=== PATIENT | female | born 1950 | race Caucasian/White ===

== ENCOUNTER 2022-05-08 14:12 | Outpatient (CLI) | payer MEDICARE, SELFPAY ==
--- NOTE | 2022-05-08 14:40 | CRLHL7_ITS ---
For Patients: As a result of the Cures Act, medical imaging exams and procedure reports are released immediately into your electronic medical record. You may view this report before your referring provider. If you have questions, please contact your health care provider. BILATERAL SCREENING MAMMOGRAM WITH COMPUTER-AIDED DETECTION AND TOMOSYNTHESIS TECHNIQUE: CC and MLO views were obtained. These mammographic images have been obtained using full-field digital technique. These mammographic images were interpreted with the benefit of computer-aided detection. Breast Tomosynthesis was used in this interpretation. COMPARISON FILM: 04/21/21, 03/01/20, 01/10/19 FINDINGS: The breasts are heterogeneously dense, which may obscure small masses IMPRESSION: There is no radiographic evidence for malignancy. ASSESSMENT: BI-RADS Category 2: Benign RECOMMENDATION: Routine screening mammogram in 1 year. A lay language report of this examination will be provided to the patient. Mazin Murillo M.D. Diagnostic/Musculoskeletal Radiologist [email or web address] Transcribed: 10:52 p.m. PT/Dictated by: Mazin Murillo MD @ 05/11/2022 10:31:00 AM (Electronically Signed)
== END 2022-05-08 14:13 | disposition home or self-care (01) ==
LOC: MAMMO 14:13
PROVIDERS: PCP Internal Medicine; Visit Provider Internal Medicine
DX: Z12.31 Encounter for screening mammogram for malignant neoplasm of breast (principal); R92.2 Inconclusive mammogram
CPT/HCPCS: 77063; 77067

== ENCOUNTER 2022-10-12 08:03 | Outpatient (CLI) | payer MEDICARE, SELFPAY ==
[2022-10-12 08:49] LABS: Chloride* 107 mmol/L (96-114); Sodium* 137 mmol/L (135-149)
[2022-10-12 08:50] LABS: D Dimer Quantitative* 0.85 ug/ml (0.00-0.50); Potassium* 4.5 mmol/L (3.6-5.1)
[2022-10-12 08:52] LABS: Alanine Aminotransferase* 26 U/L (4-35); Alkaline Phosphatase* 66 U/L (40-150); Aspartate Amino Transferase* 27 U/L (12-35); Bilirubin Total* 0.8 mg/dL (0.1-1.5); Blood Urea Nitrogen* 15 mg/dL (7-30); Calcium* 9.3 mg/dL (8.4-10.6); Carbon Dioxide* 28 mmol/L (20-32); Cholesterol* 224 mg/dL (90-199); Creatinine* 0.7 mg/dL (0.5-1.5); Estimated Glomerular Filt Rate 92 ml/min; Glucose* 106 mg/dL (60-115); Total Protein* 6.7 g/dL (6.0-8.3); Triglycerides* 89 mg/dL (40-149)
[2022-10-12 08:53] LABS: HDL Cholesterol* 73 mg/dL (>=50); LDL Cholesterol Calculated 133 mg/dL (<100)
== END 2022-10-12 08:04 | disposition home or self-care (01) ==
LOC: NFLDREF 08:03
PROVIDERS: PCP Internal Medicine; Visit Provider Internal Medicine
DX: E78.5 Hyperlipidemia, unspecified (principal); Z13.9 Encounter for screening, unspecified
CPT/HCPCS: 80053; 80061; 85379

== ENCOUNTER 2022-10-26 13:04 | Outpatient (CLI) | payer MEDICARE, SELFPAY | END 2022-10-26 13:05 | disposition home or self-care (01) | LOC: NFLDREF 13:05 | PROVIDERS: PCP Internal Medicine; Visit Provider Internal Medicine | DX: E03.9 Hypothyroidism, unspecified (principal) | CPT/HCPCS: 84443 ==

== ENCOUNTER 2023-05-13 13:03 | Outpatient (CLI) | payer MEDICARE, SELFPAY ==
--- NOTE | 2023-05-13 13:40 | CRLHL7_ITS ---
For Patients: As a result of the Century Cures Act, medical imaging exams and procedure reports are released immediately into your electronic medical record. You may view this report before your referring provider. If you have questions, please contact your health care provider. BILATERAL SCREENING MAMMOGRAM WITH COMPUTER-AIDED DETECTION AND TOMOSYNTHESIS TECHNIQUE: CC and MLO views were obtained. These mammographic images have been obtained using full-field digital technique. These mammographic images were interpreted with the benefit of computer-aided detection. Breast Tomosynthesis was used in this interpretation. COMPARISON FILM: 05/08/22, 04/21/21, 03/01/20. FINDINGS: The breasts are heterogeneously dense, which may obscure small masses IMPRESSION: There is no radiographic evidence for malignancy. ASSESSMENT: BI-RADS Category 2: Benign RECOMMENDATION: Routine screening mammogram in 1 year. A lay language report of this examination will be provided to the patient. Zain Connelly M.D. Diagnostic Radiologist [email or web address] / be/Dictated by: Zain Connelly MD @ 05/14/2023 12:04:00 PM (Electronically Signed)
== END 2023-05-13 13:04 | disposition home or self-care (01) ==
LOC: MAMMO 13:04
PROVIDERS: PCP Internal Medicine; Visit Provider Internal Medicine
DX: Z12.31 Encounter for screening mammogram for malignant neoplasm of breast (principal); R92.2 Inconclusive mammogram
CPT/HCPCS: 77063; 77067

== ENCOUNTER 2023-05-25 08:30 | Outpatient (CLI) | payer MEDICARE, SELFPAY | END 2023-05-25 08:31 | disposition home or self-care (01) | LOC: NFLDREF 05-26 01:48 | PROVIDERS: PCP Internal Medicine; Referring Provider Internal Medicine; Visit Provider Internal Medicine | DX: Z86.718 Personal history of other venous thrombosis and embolism (principal) | CPT/HCPCS: 85379 ==

== ENCOUNTER 2023-08-16 20:19 | Emergency (ER) | payer MEDICARE, SELFPAY ==
[2023-08-16 20:21] VITALS: BP 175/109; PULSE 96; RESP 18; TEMP 37.1; O2SAT 97; BMI 33.7
--- NOTE | 2023-08-16 22:55 | ED.GENADULT ---
HPI - General Adult General Chief complaint: Extremity Pain/Injury, Lower Stated complaint: L knee gave out Time Seen by Provider: 08/16/23 22:49 History of Present Illness HPI narrative: went up the steps at restaurant, in a hurry and L knee went out , hx of meniscus surgery on that knee. very painful to bear wt. on knee. felt a pop sensation. able to move leg with out much pain. knee is more swollen then R side. 73-year-old woman presenting to the emergency depart with concern of left knee pain. Has a remote history of meniscectomy or meniscal repair. Was turning to go up some steps at a restaurant and her left knee popped and gave out. Immediate pain. She has had swelling. Has waited quite some time in extremely busy emergency department to be seen. Can barely bear weight. Having a great deal of pain. notes her to be rather stoic. Did not feel right a few weeks ago and had basic x-ray imaging which per her report I take it to mean that there was some osteoarthritic change but otherwise unremarkable. Related Data Home Medications Medication Instructions Recorded Confirmed aspirin 81 mg tablet,delayed 81 mg PO BID 10/26/22 08/16/23 release Previous Rx's Medication Instructions Recorded levothyroxine 112 mcg tablet 112 mcg PO DAILY #90 tabs 12/30/22 Allergies Allergy/AdvReac Type Severity Reaction Status Date / Time No Known Allergies Allergy Unknown Unknown Verified 10/26/22 12:44 Review of Systems Status of ROS: Reports: 6 or more systems reviewed and unremarkable except as noted in History and below [facility] Medical History History of herpes labialis ?Z86.19 - Personal history of other infectious and parasitic diseases (ICD-10) History of endometriosis ?Z87.42 - Personal history of other diseases of the female genital tract (ICD-10) History of benign breast biopsy ?Z98.890 - Other specified postprocedural states (ICD-10) Encounter for routine gynecological examination ?Z01.419 - Encounter for gynecological examination (general) (routine) without abnormal findings (ICD-10) Surgical History History of vaginal hysterectomy ?Z90.710 - Acquired absence of both cervix and uterus (ICD-10) History of tonsillectomy ?Z90.89 - Acquired absence of other organs (ICD-10) History of bunionectomy of both great toes ?Z98.890 - Other specified postprocedural states (ICD-10) History of arthroscopic knee surgery ?Z98.890 - Other specified postprocedural states (ICD-10) Family History Mother Breast cancer, Onset Age: 60 Family/Other Breast cancer Aunt Ovarian cancer Social History Smoking Status: Never smoker Do you use any of these nicotine containing products: None How often do you have a drink containing alcohol: never AUDIT-C Alcohol total score: 0 Non-prescribed substance use: denies use Little interest or pleasure in doing things: not at all Feeling down, depressed, or hopeless: not at all Exam Narrative: Exam Narrative: Carefully casually groomed. Quiet but clearly very uncomfortable. Breathing easily. Heart in elevated rate and regular rhythm. No overt evidence of trauma on her skin though moderate effusion is apparent at the left knee. No erythema. Quite tender to palpation about the knee. Not able to I think do adequate exam. No laxity but quite tender to varus and valgus stressors I think more due to pressure upon the knee during manipulation. Const: Vital Signs, click to edit/add: Vital Signs - 24 hr 08/16/23 20:21 Temperature 98.8 F Pulse Rate [Pulse Oximeter] 96 Respiratory Rate 18 Blood Pressure [Ri ght Upper Arm] 175/109 H Pulse Oximetry 97 Documenting provider has reviewed patient's vital signs: yes Course Vital Signs Vital signs: Initial Vital Signs Temperature 98.8 F 08/16/23 20:21 Temperature Source Temporal Artery Scan 08/16/23 20:21 Pulse Rate 96 08/16/23 20:21 Respiratory Rate 18 08/16/23 20:21 Blood Pressure 175/109 H 08/16/23 20:21 Blood Pressure Mean 131 H 08/16/23 20:21 Blood Pressure Position Supine 08/16/23 20:21 Pulse Oximetry 97 08/16/23 20:21 Vital Signs Temperature 98.8 F 08/16/23 20:21 Pulse Rate 96 08/16/23 20:21 Respiratory Rate 18 08/16/23 20:21 Blood Pressure 175/109 H 08/16/23 20:21 Pulse Oximetry 97 08/16/23 20:21 Temperature 98.8 F 08/16/23 20:21 Pulse Rate 96 08/16/23 20:21 Respiratory Rate 18 08/16/23 20:21 Blood Pressure 175/109 H 08/16/23 20:21 Pulse Oximetry 97 08/16/23 20:21 Medications Administered Medications: Discontinued Medications Generic Name Dose Route Start Last Admin Trade Name Julien PRN Reason Stop Dose Admin Hydrocodone Bitart/Acetaminophen 2 tab 08/16/23 23:08 08/16/23 23:36 Hydrocodone-Acetamin 5-325 Mg 1 Tab PO 08/16/23 23:09 2 tab ONCE ONE Administration Ibuprofen 600 mg 08/16/23 23:08 08/16/23 23:36 Ibuprofen 200 Mg Tablet PO 08/16/23 23:09 600 mg ONCE ONE Administration Medical Decision Making MDM Narrative Medical decision making narrative: Has had recent x-ray imaging though with new event may have had some other avulsion fracture similar. Doubt major trauma. May have re-injured meniscus. Possibly ruptured Casiano's cyst. Did propose repeating x-ray images. Also offering pain medication. Settled on ibuprofen and couple tablets of Reading per 's familiarity and recommendation noting how much pain spouse is in. Also anticipated placing an ice pack. During this time we also had [facility] arriving. I was informed that Ms. Smith was moving toward just leaving the department. She is anticipating further wait and just does not feel she can anymore due to her discomfort. I proposed at least placing a knee immobilizer and prescribing her pain medication. Radiology was actually ready to take her at this time. She did go to x-ray and by the time I went to discuss these images again she had understandably already moved to leave the department. Plan had already essentially been established. Has own crutches and walker. On my read I do not appreciate any acute bony abnormality in three-view x-ray. Discharge paperwork was prepared along with pain medication. Knee immobilizer. See patient discharge plan Discharge Plan Discharge Clinical Impression: Effusion of knee, Acute knee pain, Knee sprain Patient Disposition: Home w/ Parent or Adult Condition: Stable Additional Instructions: Wear this knee immobilizer over this next week. Can use your crutches or walker. Please follow-up with your primary care provider or maybe Orthopedics (locally phone number [phone]) in the next 1-2 weeks. Temporarily and with a little food can take up to 600 mg of ibuprofen 3 times daily or alternative to that might be up to 500 mg naproxen 2 times daily. Reading from [facility]. Can take up to 1000 mg of acetaminophen per dose which can be combined with any of the above. Each tablet of Reading contains 325 mg of acetaminophen. I do not see a fracture in your x-ray. I will call you if Radiology sees anything else. Prescriptions: No Action aspirin 81 mg tablet,delayed release (DR/EC) 81 mg PO BID levothyroxine 112 mcg tablet 112 mcg PO DAILY Qty: 90 3RF Follow Up/Referrals: Amador Ritter MD [Primary Care Provider] - Stand Alone Forms: [employer] Info Instructions
--- NOTE | 2023-08-16 23:08 | CRLHL7_ITS ---
For Patients: As a result of the Century Cures Act, medical imaging exams and procedure reports are released immediately into your electronic medical record. You may view this report before your referring provider. If you have questions, please contact your health care provider. Indication: Knee injury with pain and effusion. Technique: Left knee 3 views. Comparison: None. Findings: Bones: Alignment is normal. No fractures or bone lesions. No signs of injury. Joint spaces: Minimal arthritic changes. No sign of joint effusion. Soft tissues: Unremarkable. Dictated by Saleem Jean MD @ 08/17/2023 12:42:18 AM (Electronically Signed)
[2023-08-16] MEDS: HYDROCODONE-ACETAMIN 5-325 MG 1 TAB 2 TAB PO (23:36)
[2023-08-16] MEDS: IBUPROFEN 200 MG TABLET 600 MG PO (23:36)
== END 2023-08-17 00:07 | disposition home or self-care (01) ==
PROVIDERS: Emergency Provider Family Medicine; PCP Internal Medicine
DX: M25.462 Effusion, left knee (principal); S83.92XA Sprain of unspecified site of left knee, initial encounter
CPT/HCPCS: 73562; 99284; A9270

== ENCOUNTER 2023-08-18 19:23 | Outpatient (CLI) | payer MEDICARE, SELFPAY ==
--- NOTE | 2023-08-18 19:45 | CRLHL7_ITS ---
For Patients: As a result of the Century Cures Act, medical imaging exams and procedure reports are released immediately into your electronic medical record. You may view this report before your referring provider. If you have questions, please contact your health care provider. INDICATION: Left knee pain. Popping sensation. COMPARISON: Plain film 16 August 2023. TECHNIQUE: Axial T1 and PD fat-sat, sagittal PD and T2 fat-sat and coronal PD and PD fat-sat left knee sequences. FINDINGS: Medial compartment: Meniscus: Prominent multidirectional degenerative tearing in the posterior horn and to a lesser degree undersurface of the body. Extrusion of the body and anterior horn. Articular cartilage: High-grade 2 to grade 3 fairly uniform cartilage thinning. No significant secondary degenerative change. Medial collateral ligament: Intact. - Cruciate ligaments: ACL: Intact. PCL: Intact. - Lateral compartment: Meniscus: Intermediate signal indistinctness in the free margin in the body may be some minor old fraying and mucoid change. Articular cartilage: Fairly uniform high grade 2 to grade 3 thinning. Small subchondral cyst in the central tibial plateau. Lateral collateral complex: Intact. - Patellofemoral compartment: Undulating up to grade 4 cartilage loss with underlying subchondral sclerosis, small cysts and edema. Grade 2 to grade 3 irregular cartilage thinning mid inferior trochlea. - Extensor mechanism: Distal quadriceps tendon and patellar tendon are intact with anatomic patellar alignment. - Bones and soft tissues: Trace effusion. No intra-articular body. No fracture. No bone lesion. Tiny decompressed popliteal Casiano`s cyst. IMPRESSION: 1. Complex degenerative tearing medial meniscus. 2. 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 Dictated by Archie Mannnig MD @ 08/19/2023 10:58:35 AM (Electronically Signed)
== END 2023-08-18 19:24 | disposition home or self-care (01) ==
LOC: MRI 19:27
PROVIDERS: PCP Internal Medicine; Visit Provider Internal Medicine
DX: M25.562 Pain in left knee (principal); S83.232A Complex tear of medial meniscus, current injury, left knee, initial encounter; M17.12 Unilateral primary osteoarthritis, left knee
CPT/HCPCS: 73721

== ENCOUNTER 2023-08-30 09:13 | Day surgery (SDC) | payer MEDICARE, SELFPAY ==
[2023-08-30] VITALS (11 sets, daily range): BP systolic 101–153; BP diastolic 73–99; PULSE 59–91; RESP 14–18; TEMP 36–37; O2SAT 94–98; BMI 34.3
[2023-08-30] MEDS: LACTATED RINGERS 1000 ML 1,000 ML 100 ML IV (09:10)
--- NOTE | 2023-08-30 09:39 | W.PM.H&PU ---
History & Physical Update History & Physical Update H&P Reviewed and patient assessed: No changes noted
[2023-08-30] MEDS: SODIUM CHLORIDE 0.9 % (FLUSH) 10 ML SYRINGE IVF (10:02)
[2023-08-30] MEDS: CEFAZOLIN 2 GM in 0.9 % SODIUM CHLORIDE Mini-bag 100 ML IVPB (10:45)
--- NOTE | 2023-08-30 11:22 | PM.ORPRC ---
Procedure Note Date of procedure: 08/30/23 Procedure: PREOPERATIVE DIAGNOSIS: 1. Left knee medial meniscus tear POSTOPERATIVE DIAGNOSIS: 1. Left knee medial and lateral meniscus tear 2. 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 Left knee arthroscopic partial medial and lateral meniscectomy 2. Left knee arthroscopic chondroplasty patellofemoral and medial compartments of loose chondral flaps SURGEON: Everardo Wise M.D. PRINCIPAL SYSTEMS ENGINEER: Johnson Ramírez PA-C. Of note, an esol teacher assistant was critical for this case to aid in patient positioning, knee manipulation, instrument exchange, and closure. ANESTHESIA: Spinal EBL: 20 mL TOURNIQUET: 20 minutes at 300 torr COMPLICATIONS: None evident INDICATIONS: The patient is a pleasant 73-year-old female who has experienced left knee pain particularly with any twisting or turning. Physical exam was concerning for medial meniscus tear, this was confirmed on MRI. Additionally, attempted nonoperative management has been tried, and failed. Thus, surgery was recommended. FINDINGS: Full-thickness chondral loss throughout the medial femoral condyle approaching trochlear groove into the weight-bearing portion medial side. The medial meniscus showed complex tearing of the posterior horn approaching midbody. Lateral meniscus showed partial tearing of the central portion midbody. Articular cartilage lateral compartment was well preserved. Grade 3-4 chondromalacia of patella proximally as well as the median ridge distally and trochlear groove. ACL was intact but had some more laxity than expected. PCL was intact and robust. DESCRIPTION OF PROCEDURE: After a thorough discussion of risks, benefits, and alternatives, the patient was brought to the operating room and placed upon the operating table. Induction of anesthesia was undertaken as previously noted. 2g iv Ancef was administered within 1 hr of incision preoperatively. Appropriate time-out was performed identifying proper patient, site, and procedure. The left lower extremity was prepped and draped in the appropriate sterile fashion using ChloraPrep. The limb was exsanguinated and tourniquet inflated. Anterolateral and anteromedial portals were established with an 11 blade, and a diagnostic arthroscopy was performed. This identified the findings as noted above. Following the diagnostic arthroscopy, a partial medial and lateral menisectomy was performed with the combination of basket forceps and a motorized shaver. Following this, the meniscus was re-probed and found to be stable. Approximately 33% of the medial meniscus overall require resection and 10% of the lateral meniscus. Finally, chondroplasty was performed with the torpedo shaver on the loose chondral flaps around the trochlear groove and medial femoral condyle. At this stage, the shaver was reinserted into the suprapatellar pouch and all remaining meniscal debris was evacuated. Instruments were removed, excess fluid was drained, and closure performed with 4-0 Monocryl with Steri-Strips. Dressings were applied, the tourniquet deflated, and the patient was awoken from anesthesia and transferred to the PACU in stable condition. PLAN: 1. Weightbear as tolerated operative extremity. Crutch / walker ambulation assistance PRN. Straight leg raise to be initiated starting tomorrow by the patient. 2. Ice, acetominophen and/or ibuprofen, and oxycodone for pain as needed. 3. Knee range of motion and quad sets/straight leg raise regularly 4. Follow up with PA visit in 7-10 days. for a wound check. Initiate physical therapy at that time
[2023-08-30] MEDS: ROPIVACAINE 0.5% 30 ML 150 MG INJECTION (11:25)
--- NOTE | 2023-08-30 11:35 | W.ANESCHARGE ---
Anesthesia Charges Start Date/Time Anesthesia Start Date: 08/30/23 Anesthesia Start Time: 10:28 Stop Date/Time Anesthesia Stop Date: 08/30/23 Anesthesia Stop Time: 11:36
--- NOTE | 2023-08-30 11:50 | W.ANESCHARGE ---
Anesthesia Charges Start Date/Time Anesthesia Start Date: 08/30/23 Anesthesia Start Time: 10:28 Stop Date/Time Anesthesia Stop Date: 08/30/23 Anesthesia Stop Time: 11:36 Summary Extremes of Age - Over 70 or under 1: MDA
== END 2023-08-30 13:01 | disposition home or self-care (01) ==
PROVIDERS: PCP Internal Medicine; Visit Provider Orthopaedic Surgery Sports Medicine
PROC: (CPT 29870; principal; 2023-08-30 10:45)
DX: S83.232A Complex tear of medial meniscus, current injury, left knee, initial encounter (principal); S83.282A Other tear of lateral meniscus, current injury, left knee, initial encounter; M94.262 Chondromalacia, left knee
CPT/HCPCS: 29880; 01400; 99100; J0690; J1100; J2250; J2405; J2704; J2795; J3010; J7120

== ENCOUNTER 2023-09-21 09:15 | Outpatient (RCR) | payer MEDICARE, SELFPAY | END 2024-01-19 23:59 | disposition home or self-care (01) | PROVIDERS: PCP Internal Medicine; Visit Provider Orthopaedic Surgery Sports Medicine | DX: Z98.890 Other specified postprocedural states (principal); M25.562 Pain in left knee; M25.662 Stiffness of left knee, not elsewhere classified; Z51.89 Encounter for other specified aftercare | CPT/HCPCS: 97110; 97112; 97140; 97161 ==

== ENCOUNTER 2023-10-18 16:14 | Outpatient (CLI) | payer MEDICARE, SELFPAY ==
--- NOTE | 2023-10-18 17:00 | CRLHL7_ITS ---
For Patients: As a result of the Century Cures Act, medical imaging exams and procedure reports are released immediately into your electronic medical record. You may view this report before your referring provider. If you have questions, please contact your health care provider. Indication: pain and swelling in right arm, hx dvt in legs 2 years ago Technique: Ultrasound venous duplex right upper extremity. Compression venous exam was performed using salgado-scale, color Doppler, and spectral Doppler imaging. Comparison: None. Findings: The right internal jugular, innominate, subclavian, and axillary veins are patent with normal waveforms. The brachial and basilic veins are fully compressible. There is a chronic appearing thrombus in the mid to distal right cephalic vein and antecubital vein. Impression: 1. No deep vein thrombosis in the right upper extremity. 2. Chronic appearing superficial thrombus in the mid to distal right cephalic vein and antecubital vein. Dictated by Justin Levine MD @ 10/18/2023 6:05:25 PM (Electronically Signed)
== END 2023-10-18 16:15 | disposition home or self-care (01) ==
LOC: US 16:15
PROVIDERS: PCP Internal Medicine; Visit Provider Family Medicine
DX: M79.631 Pain in right forearm (principal); I82.811 Embolism and thrombosis of superficial veins of right lower extremity; M79.89 Other specified soft tissue disorders; Z86.718 Personal history of other venous thrombosis and embolism
CPT/HCPCS: 93971

== ENCOUNTER 2023-11-05 07:50 | Outpatient (CLI) | payer MEDICARE, SELFPAY | END 2023-11-05 07:51 | disposition home or self-care (01) | LOC: NFLDREF 11-17 11:36 | PROVIDERS: PCP Internal Medicine; Referring Provider Internal Medicine; Visit Provider Internal Medicine | DX: E03.9 Hypothyroidism, unspecified (principal); E78.5 Hyperlipidemia, unspecified; R73.03 Prediabetes | CPT/HCPCS: 80053; 80061; 85379 ==

== ENCOUNTER 2024-06-02 10:04 | Outpatient (CLI) | payer MEDICARE, SELFPAY ==
--- NOTE | 2024-06-02 10:20 | CRLHL7_ITS ---
For Patients: As a result of the Century Cures Act, medical imaging exams and procedure reports are released immediately into your electronic medical record. You may view this report before your referring provider. If you have questions, please contact your health care provider. BILATERAL SCREENING MAMMOGRAM WITH COMPUTER-AIDED DETECTION AND TOMOSYNTHESIS TECHNIQUE: CC and MLO views were obtained. These mammographic images have been obtained using full-field digital technique. These mammographic images were interpreted with the benefit of computer-aided detection. Breast tomosynthesis was used in this interpretation. COMPARISON FILM: 05/13/23, 05/08/22, 04/21/21. FINDINGS: The breasts are heterogeneously dense, which may obscure small masses. IMPRESSION: There is no radiographic evidence for malignancy. ASSESSMENT: BI-RADS Category 2: Benign RECOMMENDATION: Routine screening mammogram in 1 year. A lay language report of this examination will be provided to the patient. AZIN SHIPMAN M.D. Diagnostic Radiologist [email or web address] Transcribed: 06/02/2024, 3:[address]/Dictated by: Zain Shipman MD @ 06/02/2024 1:03:00 PM (Electronically Signed)
== END 2024-06-02 10:05 | disposition home or self-care (01) ==
LOC: MAMMO 10:05
PROVIDERS: PCP Internal Medicine; Visit Provider Internal Medicine
DX: Z12.31 Encounter for screening mammogram for malignant neoplasm of breast (principal); R92.2 Inconclusive mammogram
CPT/HCPCS: 77063; 77067

== ENCOUNTER 2024-08-14 09:03 | Emergency (ER) | payer MEDICARE, SELFPAY ==
[2024-08-14 09:09] VITALS: BP 163/97; PULSE 80; RESP 18; TEMP 36.6; O2SAT 92; BMI 33.7
--- NOTE | 2024-08-14 09:22 | ED.GENADULT ---
HPI - General Adult General Date Seen: 08/14/24 Chief complaint: Extremity Pain/Injury, Lower Stated complaint: leg swelling/tightness - hx of Blood clots Time Seen by Provider: 08/14/24 09:22 History of Present Illness HPI narrative: 74-year-old female who has a history of previous lower extremity DVTs and blood clots . She also has a family history of blood clots including in her father and her son as well as herself. She does not know of any specific genetic mutation in her family. It does not sound like they have ever been tested. She also has a past medical history hypothyroidism, hyperlipidemia, elevated BMI, carpal tunnel, back pain, She has been off anticoagulation for about a year and half. She is presenting to the ER today with swelling, and a tight achy feeling in her left leg. Has been ongoing for the past 3 days. She has no known injury. She does have some chronic arthritis in her knee and has had a meniscus repair about a year ago. She has been told that she will eventually need a knee replacement. She has not had any redness or warmth of the skin on her leg. No pain or numbness in her foot or ankle. No discoloration of her leg. She just had some swelling and a tight, itchy feeling in her calf for the past few days. She called her doctor's office today he was told to come directly to the ER. Related Data Home Medications ?Medication ?Instructions ?Recorded ?Confirmed aspirin 81 mg tablet,delayed 162 mg PO QDAY 09/07/23 08/14/24 release Previous Rx's ?Medication ?Instructions ?Recorded levothyroxine 112 mcg tablet 112 mcg PO DAILY #90 tabs 11/09/23 Allergies Allergy/AdvReac Type Severity Reaction Status Date / Time No Known Allergies Allergy Unknown Unknown Verified 11/09/23 10:16 [facility] Medical History (Updated 08/14/24 @ 10:39 by Sharath Tamayo MD) Health care directive on file ?Z78.9 - Other specified health status (ICD-10) Acute meniscal tear of knee ?S83.209A - Unspecified tear of unspecified meniscus, current injury, unspecified knee, initial encounter (ICD-10) History of herpes labialis ?Z86.19 - Personal history of other infectious and parasitic diseases (ICD-10) History of endometriosis ?Z87.42 - Personal history of other diseases of the female genital tract (ICD-10) History of benign breast biopsy ?Z98.890 - Other specified postprocedural states (ICD-10) Encounter for routine gynecological examination ?Z01.419 - Encounter for gynecological examination (general) (routine) without abnormal findings (ICD-10) Surgical History (Updated 09/07/23 @ 14:09 by Johnson Ramírez PA-C) H/O arthroscopy of left knee (08/30/23) ?Z98.890 - Other specified postprocedural states (ICD-10) History of carpal tunnel release (~2001) ?Z98.890 - Other specified postprocedural states (ICD-10) Trigger thumb, right thumb (07/02/16) ?M65.311 - Trigger thumb, right thumb (ICD-10) Trigger finger, right middle finger (07/02/16) ?M65.331 - Trigger finger, right middle finger (ICD-10) History of vaginal hysterectomy ?Z90.710 - Acquired absence of both cervix and uterus (ICD-10) History of tonsillectomy ?Z90.89 - Acquired absence of other organs (ICD-10) History of bunionectomy of both great toes ?Z98.890 - Other specified postprocedural states (ICD-10) History of arthroscopic knee surgery ?Z98.890 - Other specified postprocedural states (ICD-10) Family History Mother Breast cancer, Onset Age: 60 Family/Other Breast cancer Aunt Ovarian cancer Social History (Updated 11/09/23 @ 11:01 by Eliza Bedoya ~ [facility]) What is your current living situation?: I presently have a place to live Problems where you live: no known problems In the past 12 months, utilities in danger of being shut off: no Smoking Status: Never smoker Do you use any of these nicotine containing products: None How often do you have a drink containing alcohol: monthly or less Alcohol type: wine How often do you have six or more drinks on one occasion: Never AUDIT-C Alcohol total score: 1 Non-prescribed substance use: denies use Caffeine: Yes (coffee) How often does anyone, including family, friends and others, physically hurt you: never How often does anyone, including family, friends and others, insult or talk down to you: never How often does anyone, including family, friends and others, threaten you with harm: never How often does anyone, including family, friends and others, scream or curse at you: never Are you using contraception or practicing any form of control: No Exam Narrative: Exam Narrative: Constitutional: Appears well-developed and well-nourished. Alert. Conversant. Non toxic. HENT: Head: Atraumatic. Nose: Nose normal. Mouth/Throat: Oral mucosa is clear and moist. no trismus. Eyes: Conjunctivae normal. EOM normal. Pupils equal, round, and reactive to light. No scleral icterus. Neck: Normal range of motion. Neck supple. No tracheal deviation present. Cardiovascular: Normal rate, regular rhythm. No gallop. No friction rub. No murmur heard. Symmetric radial PT pulses . Normal distal cap refill in both lower extremities per Pulmonary/Chest: Effort normal. No stridor. No respiratory distress. No wheezes. No rales. No rhonchi Musculoskeletal: RUE: Normal range of motion. No tenderness. No deformity LUE: Normal range of motion. No tenderness. No deformity RLE: Normal range of motion. No edema. No tenderness. No deformity LLE: Normal range of motion in her hip, knee, ankle, toes.. Mild calf tenderness and trace edema in her calf. No redness. No bruising. No palpable cord. No thigh or knee tenderness. No deformity Lymph: Ascending lymphangitis in her leg or redness of the skin to suggest cellulitis. Neurological: Alert and oriented to person, place, and time. Normal strength. CN II-VII intact. No sensory deficit. GCS eye subscore is 4. GCS verbal subscore is 5. GCS motor subscore is 6. Normal coordination . Intact distal toe wiggling, ankle plantar flexion dorsiflexion. Normal distal sensory function. Skin: Skin is warm and dry. No rash noted. No pallor. Normal capillary refill. Psychiatric: Normal mood. Normal affect. Const: Vital Signs, click to edit/add: Vital Signs - 24 hr 08/14/24 09:09 Temperature 97.8 F Pulse Rate [Pulse Oximeter] 80 Respiratory Rate 18 Blood Pressure [Ri ght Upper Arm] 163/97 H Pulse Oximetry 92 Oxygen Delivery Me thod Room Air Course Vital Signs Vital signs: Initial Vital Signs Temperature 97.8 F 08/14/24 09:09 Temperature Source Temporal Artery Scan 08/14/24 09:09 Pulse Rate 80 08/14/24 09:09 Respiratory Rate 18 08/14/24 09:09 Blood Pressure 163/97 H 08/14/24 09:09 Blood Pressure Mean 119 H 08/14/24 09:09 Blood Pressure Position Sitting 08/14/24 09:09 Pulse Oximetry 92 08/14/24 09:09 Oxygen Delivery Method Room Air 08/14/24 09:09 Vital Signs Temperature 97.8 F 08/14/24 09:09 Pulse Rate 80 08/14/24 09:09 Respiratory Rate 18 08/14/24 09:09 Blood Pressure 163/97 H 08/14/24 09:09 Pulse Oximetry 92 08/14/24 09:09 Oxygen Delivery Method Room Air 08/14/24 09:09 Temperature 97.8 F 08/14/24 09:09 Pulse Rate 80 08/14/24 09:09 Respiratory Rate 18 08/14/24 09:09 Blood Pressure 163/97 H 08/14/24 09:09 Pulse Oximetry 92 08/14/24 09:09 Oxygen Delivery Method Room Air 08/14/24 09:09 Medical Decision Making MDM Narrative Medical decision making narrative: Very pleasant 74-year-old female with a history of DVT, now off anticoagulation for about a year and half presenting to the ER today with atraumatic pain involving her left posterior leg and calf ongoing for the past few days. Differential is broad. First concern is for possible recurrent DVT or superficial thrombophlebitis. Ultrasound is obtained and is fortunately negative. She is not having any symptoms of chest pain or shortness of breath or dizziness to suggest PE. Discussed with the patient that ultrasound is negative but she needs a repeat ultrasound within a week if symptoms are not resolved. At this point clinical exam shows no evidence for any acute limb ischemia, cyanosis. She has strong distal pulses and normal cap refill. No recent trauma raise concern for fracture. No redness or warmth to suggest cellulitis or abscess or necrotizing soft tissue infection. Patient does have a history of osteoarthritis in her left knee and wonders if this leg pain might be stemming from her knee. She plans to follow-up with orthopedics for that. She prefers to follow-up with orthopedics through the [facility] system rather than [place] [facility]. I encouraged her to call today to make an ortho follow-up appointment. Precautions for return to the ER reviewed and questions answered. Imaging Data US Venous LLE: Attestation: I have reviewed the pertinent imaging results. Radiologist's impression: IMPRESSION: No deep vein thrombosis in the left lower extremity. Discharge Plan Discharge Clinical Impression: Pain of left calf Patient Disposition: Home, Self-Care Condition: Stable Instructions: Leg Pain (ED) Additional Instructions: As we discussed, your ultrasound looks good today. No signs of any blood clot. Monitor symptoms carefully. If you have worsening pain, new swelling or bruising, or any changing symptoms, please see your doctor or come back to the ER right away to be rechecked. If your leg is not completely healed and back to normal within 7 days, please follow-up with your doctor or come back to the ER to have a repeat ultrasound performed. Prescriptions: No Action aspirin 81 mg tablet,delayed release (DR/EC) 162 mg PO QDAY levothyroxine 112 mcg tablet 112 mcg PO DAILY Qty: 90 3RF Follow Up/Referrals: Amador Ritter MD [Staff Physician] - Stand Alone Forms: [employer] Info Instructions
--- NOTE | 2024-08-14 09:36 | CRLHL7_ITS ---
For Patients: As a result of the Century Cures Act, medical imaging exams and procedure reports are released immediately into your electronic medical record. You may view this report before your referring provider. If you have questions, please contact your health care provider. INDICATION: Left Lower Extremity Swelling TECHNIQUE: Venous duplex ultrasound of the left lower extremity utilizing compression with salgado-scale, color Doppler, and spectral Doppler imaging. COMPARISON: None FINDINGS: There is no sonographic evidence of deep vein thrombosis in the left common femoral, deep femoral, superficial femoral, popliteal, posterior tibial, peroneal, or contralateral common femoral veins. There is no visualized superficial vein thrombosis. The soft tissues are unremarkable. IMPRESSION: No deep vein thrombosis in the left lower extremity. Dictated by Justin Levine MD @ 08/14/2024 10:34:25 AM (Electronically Signed)
--- OUTSIDE RECORDS SUMMARY | 2024-08-14 10:24 | XMS_ITS | Clinical Summary ---
Author Organization [facility] Address [place], [place] [address] Care Team Providers Care Hogshead Roller Name Role Phone Inés De La Vega Primary Care Provider [phone] Encounters Date Type Department Care Team Description 08/14/2024 Nurse Triage [facility] [address] [place] [address] Evelyn Conner RN Leg Pain/problem from Last 3 Months Social History Tobacco Use Types Packs/Day Years Used Date Smoking Tobacco: Never Assessed Sex and Gender Information Value Date Recorded Sex Assigned at Not on file Gender Identity Not on file Sexual Orientation Not on file Plan of Treatment Health Maintenance Due Date Last Done Comments Tdap 1962 Depression screening for age 12+ 1963 BMI (ht and wt on same day) for age 18+ 1969 Hepatitis C screening for age 18-79 1969 Tetanus booster 1971 Colonoscopy through age 75 1996 Lipids for age 45-75 1996 Mammogram for age 45-75 1996 Zoster (shingles) series for age 50+ (1 of 2) 08/05/20 01 DEXA/DXA scan for age 65+ 2016 Pneumococcal series for age 65+ (1 of 1 - PCV) 016 COVID-19 vaccine series ( - 2023- season) 4 Influenza for age 65+ 05/14/2024 Care Teams Hogshead Roller Relationship Specialty Start Date End Date Inés De La Vega PA [address] [place] [address] PCP - General Physician Vp Strategic Planning 07/25/24
== END 2024-08-14 10:56 | disposition home or self-care (01) ==
PROVIDERS: Emergency Provider Emergency Medicine; PCP Student in an Organized Health Care Education/Training Program
DX: M79.605 Pain in left leg (principal)
CPT/HCPCS: 93971; 99283; 99284

== ENCOUNTER 2024-10-12 11:15 | Outpatient (RCR) | payer MEDICARE, SELFPAY | END 2024-10-13 17:14 | disposition home or self-care (01) | PROVIDERS: PCP Student in an Organized Health Care Education/Training Program; Visit Provider Orthopaedic Surgery | DX: M23.8X2 Other internal derangements of left knee (principal); M25.562 Pain in left knee; M25.662 Stiffness of left knee, not elsewhere classified; Z51.89 Encounter for other specified aftercare | CPT/HCPCS: 97110; 97112; 97161 ==